=== PATIENT | female | born 1985 | race Caucasian/White ===

== ENCOUNTER 2021-11-16 15:17 | Emergency (ER) | payer OTHER ==
[~2021-11-16] VITALS: Ht 154.9 cm; Wt 59.0 kg
[2021-11-16 16:17] VITALS: BP 114/69
== END 2021-11-16 16:18 | disposition home or self-care (01) ==
LOC: M.ERS 15:17
DX: S10.0XXA Contusion of throat, initial encounter (principal); W18.30XA Fall on same level, unspecified, initial encounter; Y93.89 Activity, other specified; Y92.89 Other specified places as the place of occurrence of the external cause; Y99.8 Other external cause status